=== PATIENT | female | born 1975 | race Caucasian/White ===

== ENCOUNTER 2020-11-10 07:19 | Observation (INO) ==
[2020-11-10] MEDS ORDERED: Acetaminophen IV 1,000 MG/100 ML BAG IVPB ONE (07:20)
[2020-11-10] MEDS ORDERED: CeFAZolin Syr 2,000MG/20 ML 2,000 MG/20 ML SYRINGE IVPB ONE ×2 (07:38→08:08)
[2020-11-10] MEDS ORDERED: *HR* Succinylcholine 200 MG/10 ML VIAL IVP ONE (07:56)
[2020-11-10] MEDS ORDERED: *HR* Midazolam HCl 2 MG/2 ML VIAL ONE (07:56)
[2020-11-10] MEDS ORDERED: *HR* Rocuronium Bromide 50 MG/5 ML VIAL ONE ×2 (07:57→09:58)
[2020-11-10] MEDS ORDERED: Ondansetron 4 MG/2 ML VIAL ONE ×2 (07:57→09:36)
[2020-11-10] MEDS ORDERED: Sugammadex Sodium 200 MG/2 ML VIAL IV ONE (07:57)
[2020-11-10] MEDS ORDERED: Lidocaine -MPF 2% 2 ML VIAL ONE (07:57)
[2020-11-10] MEDS ORDERED: Lidocaine HCL 4 ML Topical Solution (Laryng-O-Jet Kit Sterile Pak) TP ONE (07:57)
[2020-11-10] MEDS ORDERED: *HR* FentaNYL (PF) 100 MCG/2 ML VIAL ONE (07:58)
[2020-11-10] MEDS ORDERED: *HR* HYDROMORPHONE 2 MG/ML VIAL ONE (07:58)
[2020-11-10] MEDS ORDERED: *HR* Magnesium Sulfate 1 GM/2 ML VIAL ONE (07:58)
[2020-11-10] MEDS: Ringers Solution, Lactated 1,000 ML IVC SCH ×2 (08:11→12:12)
[2020-11-10] MEDS ORDERED: Ondansetron 4 MG/2 ML VIAL IVP PRN (08:25)
[2020-11-10] MEDS ORDERED: *HR* Meperidine 25 MG/ML SYRINGE IVP PRN (08:25)
[2020-11-10] MEDS ORDERED: Promethazine 6.25 MG in Water for inj. (sterile) 20 ML IVPB PRN (08:25)
[2020-11-10] MEDS ORDERED: ceFAZolin 1,000 MG, Sodium Chloride IRRigation 1,000 ML IR ONE (09:00)
[2020-11-10] MEDS ORDERED: Ketorolac 30 MG/ML VIAL ONE (09:35)
[2020-11-10] MEDS ORDERED: Oxymetazoline Nasal SPRAY BOTTLE NS ONE (10:09)
[2020-11-10] MEDS ORDERED: *HR* HYDROmorphone (PF) 1 MG/ML SYRINGE IVP PRN (11:41)
[2020-11-10] MEDS: *HR* HYDROmorphone PF 0.5 MG/0.5 ML SYRINGE IVP PRN ×4 (11:48→12:18)
[2020-11-10] MEDS: 0.9 % Sodium Chloride 1,000 ML IVC SCH (13:47)
[2020-11-10] MEDS: Acetaminophen IV 1,000 MG/100 ML BAG IVPB SCH ×2 (17:02→21:04)
[2020-11-10] MEDS: Insulin LISPRO 300 UNITS/3 ML VIAL SUBQ SCH (21:04)
[2020-11-11] MEDS: Simethicone 80 MG TAB.CHEW PO PRN ×2 (00:36→19:46)
[2020-11-11] MEDS: Ketorolac 30 MG/ML VIAL IVP PRN ×2 (00:36→16:31)
[2020-11-11 02:37] LABS: Basophils % 0.2 %; Eosinophils % 0.1 %; Hematocrit 33.1 % (35.3-44.9); Hemoglobin 10.3 g/dL (11.5-15.4); Immature Granulocytes % 0.5 % (0-4); Lymphocytes # 1.9 K/mcL (0.6-4.6); Lymphocytes % 10.1 %; Mean Corpuscular HGB Conc 31.1 g/dL (31.6-35.5); Mean Corpuscular Hemoglobin 26.1 pg (28.0-33.3); Mean Platelet Volume 10.1 fL (9.4-12.4); Monocytes # 1.3 K/mcL (0.0-1.3); Monocytes % 6.8 %; Neutrophils # 15.4 K/mcL (1.6-8.9); Platelet Count 438 K/mcL (140-400); Red Blood Count 3.94 M/mcL (3.82-4.97); Red Cell Distribution Width 14.6 % (11.5-14.5); Segmented Neutrophils % 82.3 %; White Blood Count 18.7 K/mcL (4.3-11.1)
[2020-11-11 02:55] LABS: BUN/Creatinine Ratio 26 (6-26); Blood Urea Nitrogen 15 mg/dL (6-20); Calcium 8.9 mg/dL (8.6-10.3); Carbon Dioxide 23 mEq/L (23-29); Chloride 105 mEq/L (98-107); Glucose 169 mg/dL (70-105); Osmolality,Calculated 287 (280-300); Potassium 4.4 mEq/L (3.5-5.1); Sodium 136 mEq/L (136-145); eGFR For African Americans > 60 (> 60); eGFR For Non-African Americans > 60 (> 60)
[2020-11-11] MEDS: Acetaminophen IV 1,000 MG/100 ML BAG IVPB SCH ×4 (03:58→18:15)
[2020-11-11] MEDS: 0.9 % Sodium Chloride 1,000 ML IVC SCH ×2 (05:11→16:31)
[2020-11-11] MEDS: Insulin LISPRO 300 UNITS/3 ML VIAL SUBQ SCH ×4 (07:34→21:37)
[2020-11-11] MEDS: *HR* OxyCODONE/APAP 5/325 TABLET PO PRN (21:40)
[2020-11-12] MEDS: Ondansetron 4 MG/2 ML VIAL IVP PRN
[2020-11-12] MEDS: Acetaminophen IV 1,000 MG/100 ML BAG IVPB SCH ×2 (00:02→05:52)
[2020-11-12] MEDS: 0.9 % Sodium Chloride 1,000 ML IVC SCH (05:57)
[2020-11-12] MEDS ORDERED: Ibuprofen 800 MG TABLET PO ONE (07:53)
[2020-11-12] MEDS: Insulin LISPRO 300 UNITS/3 ML VIAL SUBQ SCH ×4 (07:54→21:28)
[2020-11-12 08:35] LABS: Basophils # 0.1 K/mcL (0.0-0.2); Basophils % 0.5 %; Eosinophils # 0.1 K/mcL (0.0-0.6); Eosinophils % 0.4 %; Hematocrit 28.2 % (35.3-44.9); Immature Granulocytes % 0.4 % (0-4); Lymphocytes # 2.1 K/mcL (0.6-4.6); Lymphocytes % 15.3 %; Mean Corpuscular HGB Conc 30.9 g/dL (31.6-35.5); Mean Corpuscular Hemoglobin 26.2 pg (28.0-33.3); Mean Corpuscular Volume 84.9 fL (83.0-100.0); Mean Platelet Volume 10.2 fL (9.4-12.4); Monocytes # 0.9 K/mcL (0.0-1.3); Monocytes % 6.1 %; Neutrophils # 10.7 K/mcL (1.6-8.9); Platelet Count 382 K/mcL (140-400); Red Blood Count 3.32 M/mcL (3.82-4.97); Red Cell Distribution Width 14.7 % (11.5-14.5); Segmented Neutrophils % 77.3 %; White Blood Count 13.9 K/mcL (4.3-11.1)
[2020-11-12 08:48] LABS: Hemoglobin 8.7 g/dL (11.5-15.4)
[2020-11-12 08:53] LABS: BUN/Creatinine Ratio 24 (6-26); Blood Urea Nitrogen 12 mg/dL (6-20); Calcium 8.5 mg/dL (8.6-10.3); Carbon Dioxide 24 mEq/L (23-29); Chloride 107 mEq/L (98-107); Glucose 224 mg/dL (70-105); Magnesium 1.6 mg/dL (1.6-2.6); Osmolality,Calculated 291 (280-300); Phosphorous 2.9 mg/dL (2.7-4.5); Potassium 4.1 mEq/L (3.5-5.1); Sodium 137 mEq/L (136-145); eGFR For African Americans > 60 (> 60); eGFR For Non-African Americans > 60 (> 60)
[2020-11-12] MEDS: *HR* Metformin 500 MG TABLET PO SCH ×2 (09:58→19:42)
[2020-11-12] MEDS: lisinopriL 5 MG TABLET PO SCH (09:59)
[2020-11-12] MEDS: Bisacodyl 10 MG RECTAL SUPPOSITORY RC SCH (09:59)
[2020-11-12] MEDS: polyethylene glycoL 3350 17 GM POWD.PACK PO SCH (09:59)
[2020-11-12] MEDS: *HR* GlipiZIDE XL (24 HR) 10 MG TABLET PO SCH ×2 (09:59→19:42)
[2020-11-12] MEDS: Simethicone 80 MG TAB.CHEW PO PRN (15:15)
[2020-11-12] MEDS: Acetaminophen 325 MG TABLET PO PRN ×2 (16:10→23:11)
[2020-11-12] MEDS: Ibuprofen 800 MG TABLET PO PRN (17:10)
[2020-11-12] MEDS: traZODone 50 MG TABLET PO SCH (19:42)
[2020-11-12] MEDS: *HR* OxyCODONE/APAP 5/325 TABLET PO PRN (19:43)
[2020-11-12] MEDS ORDERED: traZODone 50 MG TABLET PO ONE (22:51)
[2020-11-13] MEDS: Ibuprofen 800 MG TABLET PO PRN ×2 (01:34→11:44)
[2020-11-13] MEDS: Acetaminophen 325 MG TABLET PO PRN (05:13)
[2020-11-13] MEDS: *HR* Metformin 500 MG TABLET PO SCH ×2 (07:46→20:29)
[2020-11-13] MEDS: Bisacodyl 10 MG RECTAL SUPPOSITORY RC SCH (07:46)
[2020-11-13] MEDS: *HR* GlipiZIDE XL (24 HR) 10 MG TABLET PO SCH ×2 (07:46→20:29)
[2020-11-13] MEDS: lisinopriL 5 MG TABLET PO SCH (07:46)
[2020-11-13] MEDS: Insulin LISPRO 300 UNITS/3 ML VIAL SUBQ SCH ×4 (07:47→20:31)
[2020-11-13] MEDS: polyethylene glycoL 3350 17 GM POWD.PACK PO SCH (07:47)
[2020-11-13] MEDS: *HR* OxyCODONE/APAP 5/325 TABLET PO PRN (07:59)
[2020-11-13] MEDS: Ondansetron 4 MG/2 ML VIAL IVP PRN (11:46)
[2020-11-13] MEDS: Simethicone 80 MG TAB.CHEW PO PRN (12:28)
[2020-11-13] MEDS ORDERED: Metoclopramide 20 MG in 0.9 % Sodium Chloride 50 ML IVPB ONE ×2 (14:35→15:15)
[2020-11-13] MEDS ORDERED: *HR* Promethazine 25 MG/ML VIAL IM ONE (14:54)
[2020-11-13] MEDS ORDERED: *HR* FentaNYL (PF) 100 MCG/2 ML VIAL IVP ONE (14:55)
[2020-11-13] MEDS: Metoclopramide 20 MG in 0.9 % Sodium Chloride 50 ML IVPB SCH (20:30)
[2020-11-13] MEDS: traZODone 50 MG TABLET PO SCH (20:30)
[2020-11-13] MEDS ORDERED: traZODone 50 MG TABLET PO PRN (21:04)
[2020-11-14] MEDS: Ibuprofen 800 MG TABLET PO PRN ×2 (02:09→10:54)
[2020-11-14] MEDS: Metoclopramide 20 MG in 0.9 % Sodium Chloride 50 ML IVPB SCH (05:40)
[2020-11-14 06:13] VITALS: BP 136/84; PULSE 110; TEMP 97.8; O2SAT 93
[2020-11-14] MEDS: Insulin LISPRO 300 UNITS/3 ML VIAL SUBQ SCH (08:26)
[2020-11-14] MEDS: lisinopriL 5 MG TABLET PO SCH (08:28)
[2020-11-14] MEDS: *HR* Metformin 500 MG TABLET PO SCH (08:28)
[2020-11-14] MEDS: Bisacodyl 10 MG RECTAL SUPPOSITORY RC SCH (08:28)
[2020-11-14] MEDS: polyethylene glycoL 3350 17 GM POWD.PACK PO SCH (08:28)
[2020-11-14] MEDS: *HR* GlipiZIDE XL (24 HR) 10 MG TABLET PO SCH (10:54)
== END 2020-11-14 12:11 | disposition home or self-care (01) ==
LOC: SAMDAY 07:19 → 3ANU 07:19
PROVIDERS: ADMIT Nurse Practitioner Family; ATTEND Surgery

== ENCOUNTER 2020-11-27 13:51 | Inpatient (IN) ==
[2020-11-27] MEDS ORDERED: ceFAZolin 1,000 MG in Water for inj. (sterile) 10 ML IVP ONE (14:16)
[2020-11-27] MEDS ORDERED: Fluconazole 200 MG/100 ML 200 MG/100 ML BAG IVPB SCH (14:30)
[2020-11-27 15:12] LABS: Basophils # 0.1 K/mcL (0.0-0.2); Basophils % 0.5 %; Eosinophils # 0.7 K/mcL (0.0-0.6); Eosinophils % 4.6 %; Hematocrit 28.2 % (35.3-44.9); Hemoglobin 8.8 g/dL (11.5-15.4); Immature Granulocytes % 1.1 % (0-4); Lymphocytes # 2.2 K/mcL (0.6-4.6); Lymphocytes % 15.1 %; Mean Corpuscular HGB Conc 31.2 g/dL (31.6-35.5); Mean Corpuscular Volume 83.4 fL (83.0-100.0); Mean Platelet Volume 9.2 fL (9.4-12.4); Monocytes # 0.8 K/mcL (0.0-1.3); Monocytes % 5.6 %; Neutrophils # 10.5 K/mcL (1.6-8.9); Nucleated Red Blood Cells 0.6 /100 WBC (0); Platelet Count 962 K/mcL (140-400); Red Blood Count 3.38 M/mcL (3.82-4.97); Red Cell Distribution Width 15.8 % (11.5-14.5); Segmented Neutrophils % 73.1 %; White Blood Count 14.3 K/mcL (4.3-11.1)
[2020-11-27 15:23] LABS: Bilirubin,Urine Negative (Negative); Blood,Urine Negative (Negative); Clarity,Urine Clear (Clear); Color,Urine Colorless (Yellow); Glucose,Urine (UA) Normal (Normal); Ketones,Urine Negative (Negative); Leukocyte Esterase,Urine Negative (Negative); Nitrite,Urine Negative (Negative); PH,Urine 6.5 pH Units (5.0-8.0); Protein,Urine Negative (Neg-Trace); Urobilinogen,Urine Normal (Normal)
[2020-11-27] MEDS ORDERED: Naloxone 0.4 MG/ML INJ IVP PRN (15:35)
[2020-11-27] MEDS ORDERED: *HR* Promethazine 25 MG/ML VIAL IM PRN (15:35)
[2020-11-27] MEDS ORDERED: Ondansetron 4 MG/2 ML VIAL IVP PRN (15:35)
[2020-11-27 15:36] LABS: Alanine Aminotransferase 27 Units/L (7-52); Albumin 3.5 g/dL (3.5-5.7); Albumin/Globulin Ratio 0.8 (1.1-2.2); Alkaline Phosphatase 174 Units/L (34-104); Aspartate Amino Transferase 43 Units/L (13-39); BUN/Creatinine Ratio 27 (6-26); Bilirubin,Indirect 0.3 mg/dL (0.0-1.0); Bilirubin,Total 0.3 mg/dL (0.3-1.0); Blood Urea Nitrogen 14 mg/dL (6-20); Calcium 9.4 mg/dL (8.6-10.3); Carbon Dioxide 24 mEq/L (23-29); Chloride 99 mEq/L (98-107); Globulin 4.4 g/dL (2.4-3.5); Glucose 88 mg/dL (70-105); Osmolality,Calculated 276 (280-300); Potassium 4.4 mEq/L (3.5-5.1); Sodium 133 mEq/L (136-145); Total Protein 7.9 g/dL (6.4-8.9); eGFR For African Americans > 60 (> 60); eGFR For Non-African Americans > 60 (> 60)
[2020-11-27 15:53] LABS: Platelet Estimate Increased (Normal)
[2020-11-27] MEDS ORDERED: D5% in Water 1,000 ML IVC PRN (15:54)
[2020-11-27] MEDS ORDERED: *HR* Dextrose 50 % in Water (Syg) 50 ML SYRINGE IVP PRN (15:54)
[2020-11-27] MEDS ORDERED: Dextrose Gel 15 GM/37.5 ML TUBE PO PRN ×2 (15:54)
[2020-11-27] MEDS ORDERED: MetroNIDAZOLE 500 MG/100 ML 500 MG/100 ML BAG IVPB SCH (16:00)
[2020-11-27 16:37] LABS: Influenza A PCR Negative (Negative); Influenza B PCR Negative (Negative); Resp. Syncytial Virus PCR Negative (Negative)
[2020-11-27 16:44] LABS: SARS-CoV-2 by PCR (In House) Negative (Negative)
[2020-11-27] MEDS: Insulin LISPRO 300 UNITS/3 ML VIAL SUBQ SCH (20:03)
[2020-11-27] MEDS: 0.9 % Sodium Chloride 1,000 ML IVC SCH (20:05)
[2020-11-27] MEDS: MetroNIDAZOLE 500 MG/100 ML 500 MG/100 ML BAG IVPB SCH (20:06)
[2020-11-27] MEDS: Sennosides/Docusate Sodium TABLET PO SCH (20:07)
[2020-11-28] MEDS: MetroNIDAZOLE 500 MG/100 ML 500 MG/100 ML BAG IVPB SCH ×3 (04:19→20:36)
[2020-11-28 04:37] LABS: Basophils # 0.1 K/mcL (0.0-0.2); Basophils % 0.6 %; Eosinophils # 0.6 K/mcL (0.0-0.6); Eosinophils % 5.4 %; Hematocrit 22.7 % (35.3-44.9); Immature Granulocytes % 1.4 % (0-4); Lymphocytes # 1.7 K/mcL (0.6-4.6); Lymphocytes % 15.2 %; Mean Corpuscular HGB Conc 30.8 g/dL (31.6-35.5); Mean Corpuscular Hemoglobin 25.3 pg (28.0-33.3); Mean Corpuscular Volume 81.9 fL (83.0-100.0); Mean Platelet Volume 8.4 fL (9.4-12.4); Monocytes # 0.8 K/mcL (0.0-1.3); Monocytes % 6.9 %; Neutrophils # 7.8 K/mcL (1.6-8.9); Nucleated Red Blood Cells 0.6 /100 WBC (0); Platelet Count 756 K/mcL (140-400); Red Blood Count 2.77 M/mcL (3.82-4.97); Red Cell Distribution Width 15.4 % (11.5-14.5); Segmented Neutrophils % 70.5 %; White Blood Count 11.1 K/mcL (4.3-11.1)
[2020-11-28 04:53] LABS: BUN/Creatinine Ratio 22 (6-26); Blood Urea Nitrogen 10 mg/dL (6-20); Calcium 8.6 mg/dL (8.6-10.3); Carbon Dioxide 26 mEq/L (23-29); Chloride 103 mEq/L (98-107); Glucose 142 mg/dL (70-105); Magnesium 1.7 mg/dL (1.6-2.6); Osmolality,Calculated 283 (280-300); Potassium 3.9 mEq/L (3.5-5.1); Sodium 136 mEq/L (136-145); eGFR For African Americans > 60 (> 60); eGFR For Non-African Americans > 60 (> 60)
[2020-11-28] MEDS: Insulin LISPRO 300 UNITS/3 ML VIAL SUBQ SCH ×3 (08:52→17:30)
[2020-11-28] MEDS: Sennosides/Docusate Sodium TABLET PO SCH ×2 (09:26→20:04)
[2020-11-28] MEDS: polyethylene glycoL 3350 17 GM POWD.PACK PO SCH (09:26)
[2020-11-28] MEDS: Fluconazole 400 MG/200 ML 400 MG/200 ML BAG IVPB SCH (10:11)
[2020-11-28] MEDS: 0.9 % Sodium Chloride 1,000 ML IVC SCH (10:13)
[2020-11-28 18:28] LABS: Hematocrit 26.9 % (35.3-44.9); Hemoglobin 8.1 g/dL (11.5-15.4)
[2020-11-28] MEDS: Magnesium Oxide 400 MG TABLET PO SCH (20:03)
[2020-11-28] MEDS ORDERED: traZODone 50 MG TABLET PO SCH (21:00)
[2020-11-29] MEDS: MetroNIDAZOLE 500 MG/100 ML 500 MG/100 ML BAG IVPB SCH ×2 (03:14→14:56)
[2020-11-29 07:35] VITALS: BP 105/71; PULSE 92; TEMP 98; O2SAT 95
[2020-11-29] MEDS: Magnesium Oxide 400 MG TABLET PO SCH (08:40)
[2020-11-29] MEDS: Insulin LISPRO 300 UNITS/3 ML VIAL SUBQ SCH ×2 (08:40→14:56)
[2020-11-29] MEDS: Sennosides/Docusate Sodium TABLET PO SCH (08:40)
[2020-11-29] MEDS: polyethylene glycoL 3350 17 GM POWD.PACK PO SCH (08:40)
[2020-11-29] MEDS ORDERED: Cholecalciferol (D-3) 1,000 UNIT (25MCG) TABLET PO SCH (09:00)
[2020-11-29] MEDS ORDERED: lisinopriL 5 MG TABLET PO SCH (09:00)
[2020-11-29] MEDS: Fluconazole 400 MG/200 ML 400 MG/200 ML BAG IVPB SCH (09:55)
[2020-11-29 10:16] LABS: Hematocrit 25.1 % (35.3-44.9); Hemoglobin 7.7 g/dL (11.5-15.4); Mean Corpuscular HGB Conc 30.7 g/dL (31.6-35.5); Mean Corpuscular Volume 81.5 fL (83.0-100.0); Mean Platelet Volume 8.4 fL (9.4-12.4); Platelet Count 820 K/mcL (140-400); Red Blood Count 3.08 M/mcL (3.82-4.97); Red Cell Distribution Width 15.5 % (11.5-14.5); White Blood Count 9.3 K/mcL (4.3-11.1)
[2020-11-29 10:33] LABS: BUN/Creatinine Ratio 16 (6-26); Blood Urea Nitrogen 7 mg/dL (6-20); Calcium 9.2 mg/dL (8.6-10.3); Carbon Dioxide 27 mEq/L (23-29); Chloride 99 mEq/L (98-107); Glucose 197 mg/dL (70-105); Magnesium 1.8 mg/dL (1.6-2.6); Osmolality,Calculated 283 (280-300); Phosphorous 3.3 mg/dL (2.7-4.5); Potassium 3.8 mEq/L (3.5-5.1); Sodium 135 mEq/L (136-145); eGFR For African Americans > 60 (> 60); eGFR For Non-African Americans > 60 (> 60)
== END 2020-11-29 14:57 | disposition home or self-care (01) | DRG 862 ==
LOC: EMEROOARM 13:51 → 3BNU 13:51 → 3ANU 16:20 → SUATTDRO 11-28 19:52
PROVIDERS: ADMIT Internal Medicine; ATTEND Internal Medicine